=== PATIENT | female | born 1985 | race Caucasian/White ===

== ENCOUNTER 2019-09-16 09:15 | Inpatient (IN) | payer MEDICAID, SELFPAY ==
[2019-09-16] MEDS: Lactated Ringers 1,000 ML 500 ML IV (09:21)
[2019-09-16] MEDS: Oxytocin 30 units/NS 500 ml 30 UNITS/500 ML IV.SOLN 334 UNITS IV (09:52)
[2019-09-16 10:02] LABS: Absolute Lymphocyte Count 2.65 X10^3/uL (0.83-4.51); Absolute Neutrophil Count 6.9 X10^3/uL (2.0-7.7); Basophil# 0.04 X10^3/uL; Basophil% 0.4 % (0-1); Eosinophil# 0.21 X10^3/uL; Hematocrit 37.9 % (37-47); Hemoglobin 12.4 g/dL (12.0-15.0); Lymphocyte # 2.65 X10^3/ul (4.0); Lymphocyte % 25.7 % (19-41); Mean Corp Hgb Conc 32.7 g/dL (32-36); Mean Corpuscular Volume 91.8 fL (81-99); Mean Platelet Vol. 11.8 fl (6.2-12.0); Monocyte% 4.9 % (0-10); NRBC Flagged by Analyzer 0 % (0-5); Neutrophil # 6.87 X10^3/uL (2.7-7.7); Neutrophil % 66.7 % (47-70); POSITIVE MORPHOLOGY YES; Platelet Count 220 K/mm3 (150-450); RBC Distribution Width CV 13.2 % (11.6-14.6); Red Blood Count 4.13 M/mm3 (4.2-5.4); White Blood Count 10.3 K/mm3 (4.4-11.0)
[2019-09-16 10:07] LABS: Differential Indicated SCAN CRITERIA MET
--- NOTE | 2019-09-16 10:08 | HP.PCM_ITS ---
- Problem List (1) care insufficient Status: Acute Qualifiers: Trimester: third trimester Qualified Code(s): O09.33 - Supervision of with insufficient care, third trimester History Date of Admission: 09/16/19 History of this : This is a 34 year-old, G 9 para 7107 BIB EMS for labor and undiagnosed . c/o painful contractions and need to push. She reports normal monthly menses with last sexual activity in December 2018. Home Medications: Home Medications Docusate Sodium [Colace] 100 mg PO BID PRN PRN #30 cap 09/18/19 Ibuprofen [Motrin] 600 mg PO Q8H PRN PRN #30 tab 09/18/19 Pnv No.95/Ferrous Fum/Folic AC [ Caplet] 1 ea PO DAILY #30 tab 09/18/19 Smoking Status: Light Smoker (<10/day) Alcohol: None NST - FHR Rate Baby A Baseline: 110 Variability:: Moderate Accelerations:: 15 x 15 Decelerations:: None NST Reactive:: Yes FHR Category:: Category I Uterine Activity:: unable to assess due to maternal movement and toco positioning History Past Pregnancies: Past Pregnancies Delivery Date Name GA/Weeks Outcome Route Weight Gender Labor Length Anesthesia Delivery Location Provider FOB 10/04/17 Rose FT 5#10 F 1 Home 04/26/16 astridmomo Jr FT 6#10 M 1 Home 04/25/15 Chadin 27 w Stillbirth, placental abruption M Ambulance 04/08/13 Zakara FT 5#10 F 1 [facility] 05/14/12 Cory FT 6#19 M <4 [facility] 04/11/10 Avah FT 7#2 F <4 Home/EMS 07/13/07 Arionna FT 6#10 F <4 [facility] 08/11/05 Soham FT VAVD 6#6 M 13 [facility] Expected Delivery Method: Spontaneous Vaginal Number of Visits: 0 Physical Exam Vitals: AVSS General: Alert, Oriented x3, Cooperative HEENT: Atraumatic, Normocephalic Lungs: Normal air movement Abdomen: Soft, Non Tender, Gravid Extremities:: No edema Neurological: Neuro grossly intact SERVICES CLERK: Normal external genitalia Presentation: Cephalic Cervix Dilation (cm): 10 Station: 1 Effacement (%): 100 Assessment/Plan All Active Problems care insufficient (Acute) (spontaneous vaginal delivery) (Acute) This is a 34 year-old, G [9], P [8252], at unknown gestational age with third trimester fundal height. -FD/+1 station and pushing -Anticipate - labs pending
--- NOTE | 2019-09-16 10:10 | PCM.OPRPT ---
Vaginal Delivery Maternal Presentation: Active Labor Amniotic Membrane Rupture Type: Artificial Rupture of Membrane time: 09/16/19 Amniotic Fluid Description: Lightly stained meconium [place] doctor who attended delivery (if requested by OB): Hamzah Horne Date of Procedure: 09/16/19 Pre-Operative Diagnosis: Labor, Unknown gestational age Post-Operative Diagnosis: Labor, Term Surgery/ Procedure Performed: Spontaneous Vaginal Delivery Type of Anesthesia: None Description of Procedure: Arrived to room and patient FD/+1 station [facility]. Amniotomy performed with light meconium. ISE placed. The patient pushed to deliver vigorous term appearing male . The infant mouth and nares were bulb suctioned at the perineum. The infant was placed on the maternal abdomen and further attended by nursery personnel. The cord was doubly clamped and cut. Cord gases obtained. The placenta delivered spontaneously and appeared intact on inspection. A first degree perineal laceration was hemostatic and did not require repair. Sponge counts correct x 2. Presentation: Vertex Placental Delivery Description: Spontaneous Placenta Disposition: [facility] Cord Vessel Description: 3 Vessels Nuchal Cord Compression: Without compression Cord Gases drawn per routine: ABG, VBG Cord Entanglement: None Estimated Blood Loss: 300 ml Infant A gender: Male (1 minute): 8 (5 minute): 9 Episiotomy Description: None Laceration: Midline, 1st degree Medications given after delivery: IV Pitocin Complications: None
[2019-09-16 10:27] LABS: ROM Internal Control Test YES-OK TO RESULT pt. (Internal QC); ROM Patient Test Negative (Negative)
[2019-09-16 11:02] LABS: Rubella IgG 27.4 IU/mL
[2019-09-16] MEDS: Ibuprofen 600 MG Tablet PO ×2 (11:48→22:17)
[2019-09-16 11:50] LABS: HIV - WCH Non-Reactive (Nonreactive); Hepatitis B Surface Antigen Non-Reactive (Nonreactive); Hepatitis C Antibody Non-Reactive (Nonreactive)
[2019-09-16 12:16] LABS: Chlamydia Trachomatis by PCR Negative (Negative); Group B Strep DNA By PCR Negative (Negative); Internal Control PASS; Neisserai gonorrhoeae by PCR Negative (Negative); Probe Check PASS; Sample Adequacy Control PASS; Specimen Processing Control PASS
[2019-09-16 13:24] LABS: Mucous, Urine 0 SEEN /hpf (<or=2+)
[2019-09-16 13:32] LABS: Color, Urine Red (Yellow); Glucose, Dipstick Normal (Normal); Ketone-Dipstick 50 mg/dl (Negative); Leukocyte Esterase-Dipstick 100 /ul (Negative); Nitrite-Dipstick Negative (Negative); Occult Blood-Urine 250 /ul (Negative); Protein-Dipstick 100 mg/dl (Negative); Specific Gravity, Urine 1.015 (1.002-1.030); Urine Bilirubin Dipstick Negative (Negative); Urine Clarity Turbid (Clear); Urine Urobilinogen 1 mg/dl (Normal)
[2019-09-16 13:39] LABS: Amphetamine Urine VISTA NEGATIVE (<1000 ng/mL); Barbiturate Urine VISTA NEGATIVE (< 200 ng/mL); Benzodiazepine Urine VISTA NEGATIVE (< 200 ng/mL); Cocaine Urine VISTA NEGATIVE (< 300 ng/mL); Ecstacy Urine VISTA NEGATIVE (< 500 ng/mL); Methadone Urine VISTA NEGATIVE (< 300 ng/mL); PCP Urine VISTA NEGATIVE (< 25 ng/mL); THC Urine VISTA NEGATIVE (< 50 ng/mL); Vista UDS pH Range 7
[2019-09-16 14:01] LABS: Bacteria 1+ /hpf (None Seen); Red Blood Cells-Urine > 100 SEEN /hpf (0-5); Squamous Epithelial Cells - UA 0-5 SEEN /hpf (5-10); White Blood Cells 10-25 SEEN /hpf (0-5)
[2019-09-16 16:24] VITALS: BP 134/65; PULSE 81; RESP 18; TEMP 36.6
[2019-09-16] MEDS: DiphenhydrAMINE 25 MG Capsule PO (16:30)
[2019-09-16] MEDS: Acetaminophen 325 MG Tablet PO (16:39)
[2019-09-16 20:02] VITALS: RESP 16; TEMP 36.4
[2019-09-16 22:00] VITALS: BP 120/66; PULSE 53
[2019-09-17 00:07] VITALS: BP 112/54; PULSE 54; RESP 14; TEMP 36.4
[2019-09-17 02:20] LABS: Rapid Plasmin Reagin (RPR) NONREACTIVE (NONREACTIVE)
[2019-09-17 03:55] VITALS: BP 109/58; PULSE 55; RESP 16; TEMP 36.6
--- NOTE | 2019-09-17 06:47 | PN.OBGYN_ITS ---
Subjective: No issues overnight. Did not sleep much as infant was awake. Denies heavy lochia. Does feel like she pulled something in her leg during pushing however and is sore this morning in the left groin/upper thigh area. No nausea, vomiting. Objective: AVSS - Physical Exam Vitals/I&O's: Vital Signs Temp Pulse Resp BP 97.8 F 55 L 16 109/58 L 09/17/19 03:55 09/17/19 03:55 09/17/19 03:55 09/17/19 03:55 Oxygen Delivery Method Room Air Weight: 65.771 kg Intake and Output for Last 24 Hours 09/15/19 09/16/19 09/17/19 23:59 23:59 23:59 Intake Total 758.33 / 758.33 1000 / 1000 Output Total 600 / 600 Balance 158.33 / 158.33 1000 / 1000 General: Alert, Oriented x3, Cooperative, No apparent distress HEENT: Atraumatic, Normocephalic Lungs: Normal air movement Cardiovascular: Regular rate, Regular Rhythm, Normal S1, Normal S2 Abdomen: Soft, Non Tender, Non-Distended Extremities: No edema, No Calf Tenderness Neurological: Neuro grossly intact Psych/Mental Status: Normal Affect, Appropriate, Alert and oriented to time, place, person, mood and affect Laboratory Results 09/16/19 09:20: Vag Amniotic Fld Detect Negative 09/16/19 09:25: WBC 10.3, RBC 4.13 L, Hgb 12.4, Hct 37.9, MCV 91.8, MCH 30.0, MCHC 32.7, RDW Std Deviation 44.0 H, RDW Coeff of Edwina 13.2, Plt Count 220, MPV 11.8, Immature Gran % (Auto) 0.300, Neut % (Auto) 66.7, Lymph % (Auto) 25.7, [place] % (Auto) 4.9, Eos % (Auto) 2.0, Baso % (Auto) 0.4, Absolute Neuts (auto) 6.9, Absolute Lymphs (auto) 2.65, Nucleated RBC % 0 09/16/19 09:25: Rubella IgG Antibody 27.4 09/16/19 09:25: Chlam trachomat DNA PCR Negative, N.gonorrhoeae DNA (PCR) Negative, Group B Strep DNA Negative, Specimen Comment Not Reportable 09/16/19 09:25: Blood Type O POSITIVE, Antibody Screen NEGATIVE 09/16/19 10:20: RPR NONREACTIVE 09/16/19 10:20: Hep Bs Antigen Non-Reactive, Hepatitis C Antibody Non-Reactive, HIV 1&2 Antibody Non-Reactive 09/16/19 13:20: Urine Color Red, Urine Clarity Turbid, Urine pH 8.0, Ur Specific Hensley 1.015, Urine Protein 100 H, Urine Glucose (UA) Normal, Urine Ketones 50 H, Urine Occult Blood 250 H, Urine Nitrite Negative, Urine Bilirubin Negative, Urine Urobilinogen 1 H, Ur Leukocyte Esterase 100 H, Urine RBC > 100 SEEN, Urine WBC 10-25 SEEN, Ur Squamous Epith Cells 0-5 SEEN, Urine Bacteria 1+, Urine Mucus 0 SEEN 09/16/19 13:20: Urine Opiates Screen NEGATIVE, Urine Methadone Screen NEGATIVE, Ur Barbiturates Screen NEGATIVE, Ur Phencyclidine Scrn NEGATIVE, Ur Amphetamines Screen NEGATIVE, U Methamphetamin-MDMA NEGATIVE, U Benzodiazepines Scrn NEGATIVE, Urine Cocaine Screen NEGATIVE, U Cannabinoids Screen NEGATIVE, Ur Drug Screen Comment Current Medications Acetaminophen (Tylenol) 325 - 650 mg PO Q4H PRN PRN PRN Reason: Pain Score 1-3/10 Last Admin: 09/16/19 16:39 Dose: 650 mg Documented by: Bisacodyl (Dulcolax) 10 mg RECTAL UD PRN PRN Reason: If no BM Dibucaine (Dibucaine) 1 applic TOPICAL TID PRN PRN; Protocol PRN Reason: Discomfort Diphenhydramine HCl (Benadryl) 25 mg PO TID PRN PRN PRN Reason: ITCHING Last Admin: 09/16/19 16:30 Dose: 25 mg Documented by: Hydrocortisone (Hytone) 1 applic TOPICAL TID PRN PRN; Protocol PRN Reason: Discomfort Ibuprofen (Motrin) 600 mg PO Q6H PRN PRN PRN Reason: Pain Score 1-3/10 Last Admin: 09/16/19 22:17 Dose: 600 mg Documented by: Influenza Virus Vaccine Quadrival (Flucelvax /Fluzone ) 0.5 ml IM .ONCE ONE Stop: 09/17/19 10:01 Methylergonovine Maleate (Methergine) 0.2 mg IM X1 PRN PRN Reason: Excess bleeding/uterine atony Ondansetron HCl (Zofran) 4 mg IV Q4H PRN PRN PRN Reason: NAUSEA Senna/Docusate Sodium (Senokot-S, Cherelle-Colace) 1 - 2 tablet PO DAILY PRN PRN PRN Reason: Constipation Simethicone (Mylicon) 80 mg PO PCHS PRN PRN Reason: Indigestion/Stomach pain Sodium Chloride () 5 - 15 ml IV UD PRN PRN Reason: SALINE FLUSH Medical Necessity - Tobacco Use Smoking Status: Light Smoker (<10/day) Assessment/Plan This is a 34 year-old, G [9], P [8108], PPD#1 s/p -Rh positive -Routine care - consultation today -Bottlefeeding
[2019-09-17] MEDS: Ibuprofen 600 MG Tablet PO ×2 (07:58→18:49)
[2019-09-17] MEDS: Dibucaine 30 GM Tube 1 APPLIC TOPICAL (07:59)
[2019-09-17 08:46] VITALS: BP 122/76; PULSE 51; RESP 16; TEMP 36.7
[2019-09-17] MEDS: DiphenhydrAMINE 25 MG Capsule PO (10:44)
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
[2019-09-17 14:38] VITALS: BP 135/77; PULSE 71; RESP 16; TEMP 36.7
--- NOTE | 2019-09-17 16:15 | CASEMGMT ---
Social Work Labor and Delivery Unit Summary: Called [facility] and left message for Jade Jacobsen regarding possible need for a car seat and inquired whether any car seats are available. Email also left for Jade to call this junior underwriter back with an inquiry. Presented back to mother of baby (MOB) room. Provided MOB with pack on depression. Provided general resource list for [facility]. Let MOB know she can also call [facility] tomorrow and see about the car seat program. Inquired if the reported father of baby (FOB) can purchase a car seat as MOB mentioned previously that the FOB works until 1500 every day. MOB reports the FOB is looking for a car seat but could not find one at the [facility] in [place], [place] ?where we are from.? Educated that Jorge has a [employer] and usually has car seats. MOB reports [facility] ([facility]ited last evening too). MOB reports last night she and FOB were looking for direction and were confused on how to get to the [facility] due not being from this area. Let MOB know that when FOB gets to [facility], if in need of directions the staff can help give directions. MOB verified questions for the cribs for kids? program and verbally stated consent for this junior underwriter to email referral form. Educated MOB that [facility] has walk in hours on Saturday and Fridays. MOB reports plan to go on Saturday and that can buy formula to last until Saturday. Informed MOB that this junior underwriter will be following up with MOB again tomorrow to see where things are at with getting things in place for baby. See social work documentation from earlier this date for more details of MOB's background. Plan: Social work to follow and assist. -CHERELLE Hansen, ASSOCIATE MANAGER
[2019-09-17 19:45] VITALS: BP 112/61; PULSE 75; RESP 16; TEMP 36.8
[2019-09-17] MEDS: Acetaminophen 325 MG Tablet PO (23:28)
--- NOTE | 2019-09-17 23:46 | NURSING ---
pt states pain is a 6-7 in right side but comas and goes like a pulled muscle. given a kpad and took tylenol, not yet time for motrin will take it when time if still painful.
[2019-09-18] MEDS: Ibuprofen 600 MG Tablet PO ×3 (01:10→14:57)
[2019-09-18 01:20] VITALS: BP 119/70; PULSE 70; RESP 16; TEMP 36.6
[2019-09-18 06:56] VITALS: BP 137/77; PULSE 74; RESP 18; TEMP 37.7
--- NOTE | 2019-09-18 07:10 | PCM.PN.OB ---
Subjective: Doing well. OOB, bottlefeeding. She reports continued muscle strain with pain radiating into leg from left lower quadrant and groin. Denies heavy lochia. Objective: AVSS - Physical Exam Vitals/I&O's: Vital Signs Temp Pulse Resp BP 97.8 F 70 16 119/70 09/18/19 01:20 09/18/19 01:20 09/18/19 01:20 09/18/19 01:20 Oxygen Delivery Method Room Air Weight: 65.771 kg Intake and Output for Last 24 Hours 09/16/19 09/17/19 09/18/19 23:59 23:59 23:59 Intake Total 758.33 / 758.33 1000 / 1000 Output Total 600 / 600 Balance 158.33 / 158.33 1000 / 1000 General: Alert, Oriented x3, Cooperative, No apparent distress HEENT: Atraumatic, Normocephalic Lungs: Normal air movement Cardiovascular: Regular Rhythm Abdomen: Soft, Non-Distended, - - + left lower quadrant tenderness without rebound or guarding in inguinal area Extremities: No edema, No Calf Tenderness Neurological: Neuro grossly intact Psych/Mental Status: Normal Affect, Appropriate, Alert and oriented to time, place, person, mood and affect Current Medications Acetaminophen (Tylenol) 325 - 650 mg PO Q4H PRN PRN PRN Reason: Pain Score 1-3 Last Admin: 09/17/19 23:28 Dose: 650 mg Documented by: Bisacodyl (Dulcolax) 10 mg RECTAL UD PRN PRN Reason: If no BM Dibucaine (Dibucaine) 1 applic TOPICAL TID PRN PRN; Protocol PRN Reason: Discomfort Last Admin: 09/17/19 07:59 Dose: 1 applic Documented by: Diphenhydramine HCl (Benadryl) 25 mg PO TID PRN PRN PRN Reason: ITCHING Last Admin: 09/17/19 10:44 Dose: 25 mg Documented by: Hydrocortisone (Hytone) 1 applic TOPICAL TID PRN PRN; Protocol PRN Reason: Discomfort Ibuprofen (Motrin) 600 mg PO Q6H PRN PRN PRN Reason: Pain Score 1-3/10 Last Admin: 09/18/19 01:10 Dose: 600 mg Documented by: Methylergonovine Maleate (Methergine) 0.2 mg IM X1 PRN PRN Reason: Excess bleeding/uterine atony Ondansetron HCl (Zofran) 4 mg IV Q4H PRN PRN PRN Reason: NAUSEA Senna/Docusate Sodium (Senokot-S, Cherelle-Colace) 1 - 2 tablet PO DAILY PRN PRN PRN Reason: Constipation Simethicone (Mylicon) 80 mg PO PCHS PRN PRN Reason: Indigestion/Stomach pain Sodium Chloride () 5 - 15 ml IV UD PRN PRN Reason: SALINE FLUSH Medical Necessity - Tobacco Use Smoking Status: Light Smoker (<10/day) Assessment/Plan This is a 34 year-old, G [9], P [3608] PPD#2 s/p doing well with musculoskeletal pain. -Belly binder, heading pad for pain -Rh positive -Plan for d/c home today -f/u in office in 6 weeks
--- NOTE | 2019-09-18 07:15 | DCINST_ITS ---
Discharge Diet: No Restrictions Discharge Activity: Return to Normal Activity May resume sexual activity in: 6 weeks Additional Instructions: If you experience any of the following, contact your healthcare provider. * Bleeding that soaks a pad every hour for 2 hours * Fever 100.4 or higher * Unrelieved incision or abdominal pain * Swelling, redness, discharge or bleeding from your incision or episiotomy site * Your incision begins to separate * Problems urinating (including inability to urinate or burning while urinating). * Visual changes * Severe headache * Flu-like symptoms * Pain or redness in one of both of your breasts * Pain, warmth, tenderness or swelling in your legs, especially the calf area * Frequent nausea and vomiting * Symptoms of depression or anxiety If you experience any of the following, call 911 or go to the nearest Emergency Room. * Chest pain * Problems breathing * Seizure activity * Partial or complete paralysis of a body part, slurred speech, weakness or drooping of the face, or a sudden inability to walk or hold your balance Allergies/Adverse Reactions: Allergies Penicillins Allergy (Verified 09/16/19 10:21) Hives Medications to take at Discharge Docusate Sodium [Colace] 100 mg PO BID PRN PRN #30 cap 09/18/19 Ibuprofen [Motrin] 600 mg PO Q8H PRN PRN #30 tab 09/18/19 Pnv No.95/Ferrous Fum/Folic AC [ Caplet] 1 ea PO DAILY #30 tab 09/18/19 The following prescriptions were given: Docusate Sodium [Colace] 100 mg PO BID PRN PRN #30 cap PRN Reason: Constipation Transmission Status: Pending to [id number] Ibuprofen [Motrin] 600 mg PO Q8H PRN PRN #30 tab PRN Reason: Pain Or Fever Transmission Status: Pending to [facility][id number] Pnv No.95/Ferrous Fum/Folic AC [ Caplet] 1 ea PO DAILY #30 tab Transmission Status: Pending to [facility][id number] Please Follow Up With: Betty Padron MD When: 6 weeks Primary Care Physician: Care Physician,No Primary [Primary Care Provider] - Test Results: Test results from this visit will be discussed in further detail at your follow- up appointment, if applicable.
--- NOTE | 2019-09-18 07:15 | PCM.DCVAG ---
Discharge Diet: No Restrictions Discharge Activity: Return to Normal Activity May resume sexual activity in: 6 weeks Additional Instructions: If you experience any of the following, contact your healthcare provider. Bleeding that soaks a pad every hour for 2 hours Fever 100.4 or higher Unrelieved incision or abdominal pain Swelling, redness, discharge or bleeding from your incision or episiotomy site Your incision begins to separate Problems urinating (including inability to urinate or burning while urinating). Visual changes Severe headache Flu-like symptoms Pain or redness in one of both of your breasts Pain, warmth, tenderness or swelling in your legs, especially the calf area Frequent nausea and vomiting Symptoms of depression or anxiety If you experience any of the following, call 911 or go to the nearest Emergency Room. Chest pain Problems breathing Seizure activity Partial or complete paralysis of a body part, slurred speech, weakness or drooping of the face, or a sudden inability to walk or hold your balance Allergies/Adverse Reactions: Allergies Penicillins Allergy (Verified 09/16/19 10:21) Hives Medications to take at Discharge Docusate Sodium [Colace] 100 mg PO BID PRN PRN #30 cap 09/18/19 Ibuprofen [Motrin] 600 mg PO Q8H PRN PRN #30 tab 09/18/19 Pnv No.95/Ferrous Fum/Folic AC [ Caplet] 1 ea PO DAILY #30 tab 09/18/19 The following prescriptions were given: Docusate Sodium [Colace] 100 mg PO BID PRN PRN #30 cap PRN Reason: Constipation Transmission Status: Pending to [id number] Ibuprofen [Motrin] 600 mg PO Q8H PRN PRN #30 tab PRN Reason: Pain Or Fever Transmission Status: Pending to [facility][id number] Pnv No.95/Ferrous Fum/Folic AC [ Caplet] 1 ea PO DAILY #30 tab Transmission Status: Pending to [facility][id number] Please Follow Up With: Betty Padron MD When: 6 weeks Primary Care Physician: Care Physician,No Primary [Primary Care Provider] - Test Results: Test results from this visit will be discussed in further detail at your follow-up appointment, if applicable.
--- NOTE | 2019-09-18 07:48 | NURSING ---
0715 measured for abdominal binder. Day shift RN Daniella is going to help pt put it on with assessment.
[2019-09-18 08:12] VITALS: BP 137/71; PULSE 66; RESP 18; TEMP 37
[2019-09-18 12:55] VITALS: BP 129/78; PULSE 74; RESP 18; TEMP 36.9
== END 2019-09-18 19:05 | disposition home or self-care (01) | DRG 560 ==
PROVIDERS: Admitting Provider Obstetrics & Gynecology; Referring Provider Obstetrics & Gynecology; Visit Provider Obstetrics & Gynecology
DX: O77.0 Labor and delivery complicated by meconium in amniotic fluid (principal); O99.334 Smoking (tobacco) complicating childbirth; Z37.0 Single live birth; F17.200 Nicotine dependence, unspecified, uncomplicated; Z3A.00 Weeks of gestation of pregnancy not specified; O70.0 First degree perineal laceration during delivery
CPT/HCPCS: 59025; 59050; 80307; 81001; 84112; 85025; 86592; 86703; 86762; 86803; 86850; 86900; 86901; 87077; 87081; 87186; 87340; 87491; 87591; 87653; 99218; J7120; 90686; G0378